=== PATIENT | female | born 1945 | race Caucasian/White ===

== ENCOUNTER 2023-03-25 14:42 | Inpatient (IN) | payer MEDICARE, OTHER ==
[~2023-03-25] VITALS: Ht 170.2 cm; Wt 76.2 kg
--- NOTE | 2023-03-25 15:23 | NUR ---
[facility] NEEDS PSYCH EVAL. pt claims she is healthy. DENIES PAIN NOT IN CR DISTRESS. AOX2, CONFUSED AND CALM WHILE LYING ON BED. PUT ON POX AND BEDSIDE MONITOR
--- NOTE | 2023-03-25 15:39 | NUR ---
EMT AT BEDSIDE PER REQUEST TO COLLECT URINE.
--- NOTE | 2023-03-25 15:45 | NUR ---
URINE COLLECTED AND SENT TO LAB
[2023-03-25 16:01] LABS: BASOPHILS # (AUTO) 0.1 K/uL (0.0-0.2); BASOPHILS % (AUTO) 0.6 % (0.0-2.0); EOSINOPHILS % (AUTO) 1.4 % (0.0-6.0); HEMATOCRIT 32 % (33-45); HEMOGLOBIN 9.8 g/dL (11.5-14.8); LYMPHOCYTES # (AUTO) 1.4 K/uL (0.8-4.8); LYMPHOCYTES % (AUTO) 17.2 % (20.0-44.0); MEAN CORPUSCULAR HGB CONC 31 g/dl (31.0-36.0); MEAN CORPUSCULAR VOLUME 64 fL (82-100); MONOCYTES # (AUTO) 0.4 K/uL (0.1-1.30); MONOCYTES % (AUTO) 4.6 % (2.0-12.0); NEUTROPHILS # (AUTO) 6.3 K/uL (1.8-8.9); NEUTROPHILS % (AUTO) 76.2 % (43.0-81.0); PLATELET COUNT (AUTO) 262 K/uL (150-450); RED BLOOD CELL COUNT(AUTO) 4.98 MIL/uL (4.0-5.2); WHITE BLOOD COUNT (AUTO) 8.3 K/uL (4.3-11.0)
[2023-03-25 16:06] LABS: BILIRUBIN,URINE NEGATIVE (NEGATIVE); COLOR,URINE YELLOW (YELLOW); LEUKOCYTE ESTERASE ,URINE 2+ (NEGATIVE); NITRITE, URINE NEGATIVE (NEGATIVE); PH,URINE 7.5 (5.0-8.0); PROTEIN,URINE NEGATIVE (NEGATIVE); UGLUCOSE NEGATIVE (NEGATIVE); UROBILINOGEN,URINE 0.2 EU/dL (0.2)
[2023-03-25 16:25] LABS: BACTERIA,URINE 1+ /HPF (None Seen); RBC,URINE 0-2 /HPF (0-2); SQUAMOUS EPITHELIAL CELL,UR Few /HPF (None Seen)
--- NOTE | 2023-03-25 16:33 | NUR ---
MOVE SHEET SUBMITTED.
[2023-03-25 16:36] LABS: ALANINE AMINOTRANSFERASE 20 U/L (12-78); ALBUMIN 3.1 g/dL (3.4-5.0); ALKALINE PHOSPHATASE 80 U/L (46-116); ASPARTATE AMINOTRANSFERASE 17 U/L (15-37); BILIRUBIN,DIRECT 0.1 mg/dL (0.0-0.2); BILIRUBIN,TOTAL 0.7 mg/dL (0.2-1.0); CALCIUM, SERUM 9.5 mg/dL (8.5-10.1); CARBON DIOXIDE 26 mmol/L (21-32); CHLORIDE 104 mmol/L (98-107); CREATININE 0.5 mg/dL (0.6-1.3); GLUCOSE 106 mg/dL (74-106); POTASSIUM 3.4 mmol/L (3.5-5.1); SODIUM SERUM 137 mmol/L (136-145); TOTAL PROTEIN, SERUM 6.6 g/dL (6.4-8.2); UREA NITROGEN, BLOOD 11 mg/dL (7-18)
[2023-03-25 16:56] LABS: ALCOHOL, BLOOD < 3 mg/dL (0-0)
--- NOTE | 2023-03-25 17:30 | NUR ---
RAE STEPHENS CALLED AND LEFT MESSAGE.
--- NOTE | 2023-03-25 17:44 | NUR ---
LACIE MCBRIDE [phone] ETA [phone]
--- NOTE | 2023-03-25 20:27 | NUR ---
REPORT GIVEN TO SHANTAL APPIAH
--- NOTE | 2023-03-25 21:53 | NUR ---
TRANSFERRED TO GPS VIA BED
--- NOTE | 2023-03-25 21:55 | NUR ---
POWER PLANT SUPERINTENDENT NOTE: ADMITTED A 77-Y/O, FEMALE, FROM [facility], INITIALLY PATIENT CAME FROM [facility]. ADMITTED ON A 5150 HOLD FOR DTO DUE TO INCREASE AGITATION AND AGGRESSIVE BEHAVIOR. UPON FACE TO FACE EVALUATION, PATIENT IS ALERT AND ORIENTED X2, ANXIOUS, RESISTIVE TO CARE, TALKING TO SELF, YELLING AND SCREAMING AND HYPERVERBAL. SKIN ASSESSMENT DONE. WOUND CONSULT ORDERED. PT. REFUSED TO SIGN ADMITTING PAPERWORK/CONSENT. ALL BELONGINGS WERE CHECKED FOR CONTRABAND. PT. VALUABLES WERE TAKEN TO [facility]. PATIENT'S RIGHTS WERE DISCUSSED AND BOOKLET WAS GIVEN. CONTACTED DR. NJ AND HOSPITALIST DR. RANDALL AND INFORMED THEM OF THE ADMISSION. BED IN LOW AND LOCKED POSITION. SAFETY PRECAUTIONS MAINTAINED. WILL CONTINUE TO MONITOR Q15 MINS FOR MOOD, SAFETY AND BEHAVIOR.
[2023-03-25 22:03] VITALS: BP 140/59
[2023-03-25] MEDS ORDERED: ACETAMINOPHEN 325 MG TABLET PO PRN (22:30)
[2023-03-25] MEDS ORDERED: TEMAZEPAM 7.5 MG CAPSULE PO PRN (22:30)
[2023-03-25] MEDS ORDERED: clonazePAM 0.5 MG TABLET PO PRN (22:30)
[2023-03-25] MEDS ORDERED: MAGNESIUM HYDROXIDE 30 ML UDC PO PRN (22:30)
[2023-03-25] MEDS ORDERED: BLOOD SUGAR DIAGNOSTIC 1 EACH STRIP IN ONE (22:30)
[2023-03-25] MEDS ORDERED: MAG HYDROX/AL HYDROX/SIMETH 30 ML UDC PO PRN (22:30)
[2023-03-25] MEDS ORDERED: LINA72CA PO (23:19)
[2023-03-25] MEDS ORDERED: SENN-261 PO (23:19)
[2023-03-25] MEDS ORDERED: CALC-17 PO (23:19)
[2023-03-25] MEDS ORDERED: ASCO500C18 PO (23:19)
[2023-03-25] MEDS ORDERED: HYDR-3642 PO (23:19)
[2023-03-25] MEDS ORDERED: HYDR-3972 PO (23:19)
[2023-03-25] MEDS ORDERED: GABA-532 PO (23:19)
[2023-03-25] MEDS ORDERED: CITA20TA19 PO (23:19)
[2023-03-25] MEDS ORDERED: CHOL200026 PO (23:19)
[2023-03-25] MEDS ORDERED: POLY90PO PO (23:19)
[2023-03-25] MEDS ORDERED: FAMO20TA8 PO (23:19)
[2023-03-25] MEDS ORDERED: FOLI0.8T2 PO (23:19)
[2023-03-25] MEDS ORDERED: QUET25TA PO ×2 (23:19)
[2023-03-25] MEDS ORDERED: IBAN150T16 PO (23:19)
[2023-03-25] MEDS ORDERED: FERR325T23 PO (23:19)
[2023-03-25] MEDS ORDERED: FURO20TA4 PO (23:19)
[2023-03-25] MEDS ORDERED: MULT-365 PO (23:19)
[2023-03-25] MEDS ORDERED: ASPI-1420 PO (23:19)
[2023-03-26] MEDS ORDERED: Z GUARD REMEDY 4 OZ OINT TP SCH (02:00)
[2023-03-26 08:00] VITALS: BP 156/69
[2023-03-26] MEDS ORDERED: LORAZEPAM INJ 2 MG/ML VIAL IM PRN (08:00)
[2023-03-26] MEDS ORDERED: HALOPERIDOL LACTATE INJ 5 MG/ML VIAL IM ONE (08:00)
--- NOTE | 2023-03-26 08:25 | NUR ---
PT WAS GIVEN IM INJECTION OF ATIVAN PER HER REQUEST. PT COOPERATIVE WITH INJECTION AND TOLERATED IT WELL. PT HAD NO DISTRESS. PT WILL BE MONITORED FOR CHANGES IN BEHAVIOR AND SAFETY.
[2023-03-26] MEDS: Z GUARD REMEDY 4 OZ OINT TP SCH ×2 (09:00→21:06)
[2023-03-26] MEDS: DIVALPROEX SODIUM 125 MG CAP.SPRINK PO SCH ×2 (09:00→21:03)
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
[2023-03-26] MEDS ORDERED: HONE15GE TP (10:44)
[2023-03-26] MEDS ORDERED: ASCO500T10 PO (10:44)
[2023-03-26] MEDS ORDERED: CALC500T52 PO (10:44)
[2023-03-26] MEDS ORDERED: NYST15CR TP (10:44)
[2023-03-26] MEDS ORDERED: ACET-2605 PO (10:44)
[2023-03-26] MEDS ORDERED: FOLI0.4T6 PO (10:44)
[2023-03-26] MEDS ORDERED: POLY17PO4 PO (10:44)
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
--- NOTE | 2023-03-26 11:29 | NUR ---
Treatment Plan: Pt refused to sign treatment plan and was aggressive.
--- NOTE | 2023-03-26 11:29 | NUR ---
Y[facility]O Initial Discharge Note: Pt currently resides at [facility] [address] [place] [address], . YOKO spoke with amparo Lewis ([phone]) who stated that she would need to consult with the DON and will let this auto service writer know if pt is welcomed back. YOKO will contact pt's son Yohan ([phone]) to gather collateral and discuss treatment/discharge plan.
--- NOTE | 2023-03-26 13:25 | NUR ---
Family Contact: SW contacted pt's daughter Milena ([phone]). SW explained that the facility she was at does not want to take pt back. SW gave her options Assisted living, or speak to facility to take her back (7 day bedhold), or take pt back home. Milena stating that she has family problems. YOKO explained to be logical and decide what the best solution would be for pt.
[2023-03-26] MEDS ORDERED: ACETAMINOPHEN ES 500 MG TABLET PO PRN (15:00)
[2023-03-26] MEDS ORDERED: HYDROCODONE/APAP 5/325MG TABLET PO PRN (15:00)
[2023-03-26] MEDS ORDERED: FUROSEMIDE 20 MG TABLET PO PRN (15:00)
[2023-03-26] MEDS ORDERED: hydrOXYzine 10 MG TABLET PO PRN (15:00)
[2023-03-26 16:00] VITALS: BP 129/61
[2023-03-26] MEDS: GABAPENTIN 100 MG CAPSULE PO SCH (17:00)
[2023-03-26] MEDS: ASCORBIC ACID 500 MG TABLET PO SCH (17:00)
[2023-03-26] MEDS: ASPIRIN EC 81 MG TABLET.DR PO SCH (17:00)
[2023-03-26 19:37] VITALS: BP 137/75
[2023-03-26] MEDS: QUETIAPINE FUMARATE 25 MG TABLET PO SCH (21:03)
--- NOTE | 2023-03-26 21:08 | NUR ---
Pt A/O x1. Respiration even and unlabored without SOB noted. Pt is compliant with care. Took PM meds PO and tolerated well. Will continue to monitor. Q 15 mins for safety. Will endorse to next shift.
[2023-03-27 08:00] VITALS: BP 130/60
[2023-03-27] MEDS: FERROUS SULFATE (325 MG) 325 MG/TAB TABLET PO SCH (08:41)
[2023-03-27] MEDS: SENNOSIDES 8.6 MG TABLET PO SCH (08:41)
[2023-03-27] MEDS: ASPIRIN EC 81 MG TABLET.DR PO SCH ×2 (08:41→16:34)
[2023-03-27] MEDS: CALCIUM CARBONATE (1250) 500 MG TABLET PO SCH (08:41)
[2023-03-27] MEDS: ASCORBIC ACID 500 MG TABLET PO SCH ×2 (08:41→16:34)
[2023-03-27] MEDS: FAMOTIDINE (20 MG) 20 MG TABLET PO SCH (08:41)
[2023-03-27] MEDS: GABAPENTIN 100 MG CAPSULE PO SCH ×3 (08:41→16:34)
[2023-03-27] MEDS: DIVALPROEX SODIUM 125 MG CAP.SPRINK PO SCH ×2 (08:41→21:49)
[2023-03-27] MEDS: Z GUARD REMEDY 4 OZ OINT TP SCH ×2 (08:41→21:57)
[2023-03-27] MEDS: POLYETHYLENE GLYCOL 3350 17 GM POWD.PACK PO SCH (08:41)
[2023-03-27 12:30] LABS: IRON, SERUM 42 ug/dl (50-175); TOTAL IRON BINDING CAPACITY 172 ug/dl (250-450)
--- NOTE | 2023-03-27 14:36 | NUR ---
FACILITY CONTACT: SW spoke with Hal admissions from [facility] [address] [place] [address], and notified them of the 7 day bed hold and that they are required to take the pt back. Hal stated once pt is stable they will take the pt back and will require clinicals sent.
[2023-03-27 16:00] VITALS: BP 129/58
--- NOTE | 2023-03-27 19:28 | NUR ---
NURSE NOTE: OPTIFOAM TO SACRAL AREA, BILAT HEELS OFFLOADED. TRIED TO REPOSITION PT MULT TIMES, BUT PT REFUSED EVERY TIME. WILL ENDORSE TO SEISMIC OBSERVER.
--- NOTE | 2023-03-27 20:13 | NUR ---
WELDER GAS NOTES: RECEIVED PATIENT IN HER ROOM. SLEEPING IN BED. EASILY AROUSABLE. ON ROOM AIR. NO ACUTE DISTRESS NOTED. NO C/O PAIN AT THIS TIME. SAFETY MEASURES IN PLACE. WILL CONTINUE TO MONITOR FOR SAFETY AND BEHAVIOR.
[2023-03-27 20:25] VITALS: BP 116/51
[2023-03-27] MEDS: QUETIAPINE FUMARATE 25 MG TABLET PO SCH (21:49)
[2023-03-27] MEDS: MUPIROCIN OINT 2% 22 GM TUBE NS SCH (21:56)
--- NOTE | 2023-03-28 05:57 | NUR ---
CASTING SUPERVISOR NOTES: PATIENT IN BED, RESTING. CALM. NO DISTRESS NOTED. A/OX2. NO C/O PAIN AT THIS TIME. ABLE TO MAKE NEEDS KNOWN. MEDICATION COMPLIANT. NEEDY. EASILY AGITATED. COOPERATIVE. PATIENT BEDBOUND. NEEDS MAXIMUM ASSISTANCE WITH ADL'S. ALL NEEDS RENDERED. WILL ENDORSE TO ONCOMING SHIFT FOR CONTINUITY OF CARE.
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
[2023-03-28 08:00] VITALS: BP 118/48
[2023-03-28] MEDS: SENNOSIDES 8.6 MG TABLET PO SCH (09:46)
[2023-03-28] MEDS: ASPIRIN EC 81 MG TABLET.DR PO SCH ×2 (09:46→17:36)
[2023-03-28] MEDS: POLYETHYLENE GLYCOL 3350 17 GM POWD.PACK PO SCH (09:46)
[2023-03-28] MEDS: GABAPENTIN 100 MG CAPSULE PO SCH ×3 (09:46→17:36)
[2023-03-28] MEDS: FERROUS SULFATE (325 MG) 325 MG/TAB TABLET PO SCH (09:46)
[2023-03-28] MEDS: ASCORBIC ACID 500 MG TABLET PO SCH ×2 (09:46→17:36)
[2023-03-28] MEDS: FAMOTIDINE (20 MG) 20 MG TABLET PO SCH (09:46)
[2023-03-28] MEDS: CALCIUM CARBONATE (1250) 500 MG TABLET PO SCH (09:46)
[2023-03-28] MEDS: DIVALPROEX SODIUM 125 MG CAP.SPRINK PO SCH ×2 (09:46→21:25)
[2023-03-28] MEDS: Z GUARD REMEDY 4 OZ OINT TP SCH ×2 (09:47→21:28)
[2023-03-28] MEDS: MUPIROCIN OINT 2% 22 GM TUBE NS SCH ×2 (09:48→21:26)
[2023-03-28] MEDS: PROSOURCE / PROSTAT (PYXIS) 30 ML UDC GT SCH (17:00)
[2023-03-28 18:50] VITALS: BP 138/60
--- NOTE | 2023-03-28 20:41 | NUR ---
FAITH HEALER NOTES: RECEIVED PATIENT SLEEPING IN BED, EASY TO AROUSE. A/OX1. BREATHING EVEN AND NON-LABORED. WITH EQUAL RISE AND FALL OF THE CHEST.ON ROOM AIR. PATIENT IS DISPLAYING NO APPARENT DISTRESS. MED COMPLIANT.NO C/O PAIN AT THIS TIME. SAFETY MEASURES IN PLACE. ALL NEEDS ATTENDED TO.WILL CONTINUE TO MONITOR FOR SAFETY AND BEHAVIOR.
[2023-03-28 21:10] VITALS: BP 135/65
[2023-03-28] MEDS: QUETIAPINE FUMARATE 25 MG TABLET PO SCH (21:25)
[2023-03-29 08:00] VITALS: BP 143/52
--- NOTE | 2023-03-29 08:02 | NUR ---
[facility]O Discharge Note: Patient will return back to [facility] [address] [place] [address], . Please arrange transportation at 1PM. YOKO spoke with Yolanda christensen ([phone]) who stated that pt can return back today. Pts daughter Milena ([phone]) is aware and agreeable of dc. Pt is alert and oriented x1. Pt denies suicidal or homicidal ideation. Pt denies visual/auditory hallucination. Patient will continue to follow-up with [employer], Dr. [place] [address] [place] [address], who will monitor and provide antipsychotic medications. Pt presents with euthymic mood and congruent affect.
[2023-03-29] MEDS: GABAPENTIN 100 MG CAPSULE PO SCH ×2 (08:56→12:11)
[2023-03-29] MEDS: CALCIUM CARBONATE (1250) 500 MG TABLET PO SCH (08:56)
[2023-03-29] MEDS: POLYETHYLENE GLYCOL 3350 17 GM POWD.PACK PO SCH (08:56)
[2023-03-29] MEDS: DIVALPROEX SODIUM 125 MG CAP.SPRINK PO SCH (08:56)
[2023-03-29] MEDS: SENNOSIDES 8.6 MG TABLET PO SCH (08:56)
[2023-03-29] MEDS: ASCORBIC ACID 500 MG TABLET PO SCH (08:56)
[2023-03-29] MEDS: FAMOTIDINE (20 MG) 20 MG TABLET PO SCH (08:56)
[2023-03-29] MEDS: FERROUS SULFATE (325 MG) 325 MG/TAB TABLET PO SCH (08:56)
[2023-03-29] MEDS: ASPIRIN EC 81 MG TABLET.DR PO SCH (08:56)
[2023-03-29] MEDS: Z GUARD REMEDY 4 OZ OINT TP SCH (08:57)
[2023-03-29] MEDS: PROSOURCE / PROSTAT (PYXIS) 30 ML UDC GT SCH (08:57)
[2023-03-29] MEDS: MUPIROCIN OINT 2% 22 GM TUBE NS SCH (08:57)
--- NOTE | 2023-03-29 09:17 | NUR ---
Dr. Olsen gave an order to D/C hold and D/C to [facility] and to continue same meds including prn.
--- NOTE | 2023-03-29 11:00 | NUR ---
LACIE ZAMUDIO [phone] GAVE REPORT TO YANELIS MURGUIA.
--- NOTE | 2023-03-29 11:25 | NUR ---
Troy Haynes NP made aware of the discharge and reconciled meds to continue in the facility and added Keflex 500 mg po q6h x5 days for UTI.
--- NOTE | 2023-03-29 13:21 | NUR ---
PT IN BED. AROUSABLE TO VERBAL AND TACTILE STIMULI. DENIES PAIN OR DISCOMFORT. NO RESP DISTRESS NOTED. PT DENIES SUICIDAL IDEATION. PT DENIES HOMICIDAL IDEATION. PT CALM AND COOPERATIVE.
--- NOTE | 2023-03-29 13:45 | NUR ---
PT PICKED UP BY [facility] WITH 2 EMT. PT AOX2 WITH PERIODS OF CONFUSION. ABLE TO DENY PAIN OR DISCOMFORT. PT DENIES HI/SI. ON ROOM AIR NO RESP DISTRESS NOTED. ALL BELONGINGS ACCOUNTED. PHOTOS OF SKIN ISSUES KEPT IN CHART.EXIT CARE FOLDER GIVEN TO EMT. PT LEFT IN STABLE CONDITION
== END 2023-03-29 13:45 | DRG 885 ==
LOC: ER 14:59 → GPS 20:03
PROVIDERS: ADMIT Nurse Practitioner Psychiatric/Mental Health; ATTEND Nurse Practitioner Acute Care
DX: F39 Unspecified mood [affective] disorder (principal); F29 Unspecified psychosis not due to a substance or known physiological condition; K21.9 Gastro-esophageal reflux disease without esophagitis; D64.9 Anemia, unspecified; F20.0 Paranoid schizophrenia; Z87.81 Personal history of (healed) traumatic fracture; Z87.891 Personal history of nicotine dependence; Z91.199 Patient's noncompliance with other medical treatment and regimen due to unspecified reason; L89.156 Pressure-induced deep tissue damage of sacral region; B96.20 Unspecified Escherichia coli [E. coli] as the cause of diseases classified elsewhere; D63.8 Anemia in other chronic diseases classified elsewhere; E87.6 Hypokalemia
CPT/HCPCS: 36415; 80048-TC; 80076-TC; 81001; 82962-TC; 83540-TC; 85025-TC; 87081-TC; 87086-TC; G0480; J1630; J2060

== ENCOUNTER 2024-12-15 11:21 | Inpatient (IN) | payer MEDICARE, OTHER ==
[~2024-12-15] VITALS: Ht 165.1 cm; Wt 71.7 kg
[~2024-12-15 11:21] MED LIST: ACET-2605 PO; ASCO500T10 PO; ASPI-1420 PO; CALC500T52 PO; CHOL200026 PO; CITA20TA19 PO; FAMO20TA8 PO; FERR325T23 PO; FOLI0.4T6 PO; FURO20TA4 PO; GABA-532 PO; HONE15GE TP; HYDR-3642 PO; HYDR-3972 PO; IBAN150T16 PO; LINA72CA PO; MULT-365 PO; NYST15CR TP; POLY17PO4 PO; QUET25TA PO; SENN-261 PO
[2024-12-15] MEDS: IV NS 0.9% 1,000 ML BAG IV ONE (12:03)
[2024-12-15] MEDS ORDERED: ATOR10TA PO (12:22)
[2024-12-15] MEDS ORDERED: OLAN5TAB3 PO (12:22)
[2024-12-15] MEDS ORDERED: DIVA125C5 PO (12:22)
[2024-12-15] MEDS ORDERED: AMIN30LI66 PO (12:22)
[2024-12-15] MEDS ORDERED: COLL30OI TP (12:22)
[2024-12-15] MEDS ORDERED: ESCI20TA PO (12:22)
[2024-12-15] MEDS ORDERED: CRAN300T PO (12:22)
[2024-12-15] MEDS ORDERED: ZINC220C6 PO (12:22)
[2024-12-15] MEDS ORDERED: OMEP40CA21 PO (12:22)
[2024-12-15 12:36] LABS: BASOPHILS % (AUTO) 0.7 % (0.0-2.0); EOSINOPHILS % (AUTO) 0.5 % (0.0-6.0); HEMATOCRIT 37 % (33-45); HEMOGLOBIN 11.2 g/dL (11.5-14.8); LYMPHOCYTES # (AUTO) 1.9 K/uL (0.8-4.8); LYMPHOCYTES % (AUTO) 28.7 % (20.0-44.0); MEAN CORPUSCULAR HEMOGLOBIN 19 PG (26.0-33.0); MEAN CORPUSCULAR HGB CONC 31 g/dl (31.0-36.0); MEAN CORPUSCULAR VOLUME 63 fL (82-100); MONOCYTES # (AUTO) 0.5 K/uL (0.1-1.30); MONOCYTES % (AUTO) 7.2 % (2.0-12.0); NEUTROPHILS # (AUTO) 4.1 K/uL (1.8-8.9); NEUTROPHILS % (AUTO) 62.9 % (43.0-81.0); PLATELET COUNT (AUTO) 321 K/uL (150-450); RED BLOOD CELL COUNT(AUTO) 5.79 MIL/uL (4.0-5.2); RED CELL DISTRIBUTION WIDTH 16.4 % (11.5-15.0); WHITE BLOOD COUNT (AUTO) 6.5 K/uL (4.3-11.0)
[2024-12-15 12:59] LABS: LACTIC ACID 1.3 mmol/L (0.4-2.0)
[2024-12-15 13:00] LABS: INR 1.14 (0.91-1.10); PARTIAL THROMBOPLASTIN TIME 28.8 SEC (24.3-34.3)
[2024-12-15 13:05] LABS: ALANINE AMINOTRANSFERASE 25 U/L (12-78); ALBUMIN 2.9 g/dL (3.4-5.0); ALKALINE PHOSPHATASE 93 U/L (46-116); ASPARTATE AMINOTRANSFERASE 20 U/L (15-37); BILIRUBIN,DIRECT 0.3 mg/dL (0.0-0.2); BILIRUBIN,TOTAL 0.9 mg/dL (0.2-1.0); CALCIUM, SERUM 8.6 mg/dL (8.5-10.1); CARBON DIOXIDE 28 mmol/L (21-32); CHLORIDE 105 mmol/L (98-107); CREATININE 0.5 mg/dL (0.6-1.3); GLUCOSE 78 mg/dL (74-106); POTASSIUM 3.4 mmol/L (3.5-5.1); SODIUM SERUM 141 mmol/L (136-145); TOTAL PROTEIN, SERUM 7.1 g/dL (6.4-8.2); UREA NITROGEN, BLOOD 15 mg/dL (7-18)
[2024-12-15 13:17] LABS: APPEARANCE,URINE TURBID (CLEAR); BILIRUBIN,URINE NEGATIVE (NEGATIVE); BLOOD, URINE 1+ Ery/uL (NEGATIVE); COLOR,URINE DARK YELLOW (YELLOW); PROTEIN,URINE 1+ mg/dl (NEGATIVE); UGLUCOSE NEGATIVE (NEGATIVE)
[2024-12-15 13:18] LABS: KETONES,URINE 1+ mg/dL (NEGATIVE); UROBILINOGEN,URINE 0.2 EU/dL (0.2)
[2024-12-15 13:19] LABS: LEUKOCYTE ESTERASE ,URINE 2+ (NEGATIVE); NITRITE, URINE POSITIVE (NEGATIVE)
[2024-12-15 13:22] LABS: ADD URINE CULTURE YES; BACTERIA,URINE 1+ /HPF (None Seen); MUCUS,URINE Few /LPF (None Seen); WBC,URINE 81-100 /HPF (0-3)
[2024-12-15] MEDS ORDERED: ACETAMINOPHEN 325 MG TABLET PO PRN (17:30)
[2024-12-15] MEDS ORDERED: ONDANSETRON HCL/PF 4 MG/2 ML VIAL IVP PRN (17:30)
[2024-12-15] MEDS: FERROUS SULFATE (325 MG) 325 MG/TAB TABLET PO SCH (19:12)
[2024-12-15] MEDS: SENNOSIDES 8.6 MG TABLET PO SCH (19:12)
[2024-12-15] MEDS: GABAPENTIN 100 MG CAPSULE PO SCH (19:12)
[2024-12-15] MEDS: IV NS 0.9% 1,000 ML IV PRN (19:13)
[2024-12-15] MEDS: CEFTRIAXONE 1 G in IV D5W 50 ML IV SCH (19:13)
[2024-12-15] MEDS: ENOXAPARIN SODIUM 40 MG/0.4 ML DISP.SYRIN SQ SCH (19:17)
[2024-12-15 20:00] VITALS: BP 164/57; TEMP 98.1; O2SAT 98
[2024-12-15] MEDS: OLANZAPINE 5 MG TABLET PO SCH (21:43)
[2024-12-15] MEDS: ATORVASTATIN 10 MG TABLET PO SCH (21:43)
[2024-12-15] MEDS: DIVALPROEX SODIUM 125 MG CAP.SPRINK PO SCH (21:43)
[2024-12-15] MEDS: QUETIAPINE FUMARATE 25 MG TABLET PO SCH (21:43)
[2024-12-15] MEDS: POTASSIUM CHLORIDE 20 MEQ TAB.PRT.SR PO ONE (22:12)
[2024-12-16] VITALS: BP 133/66; TEMP 97.7; O2SAT 98
[2024-12-16 04:00] VITALS: BP 158/74; TEMP 97.7; O2SAT 98
[2024-12-16 07:19] LABS: BASOPHILS % (AUTO) 0.5 % (0.0-2.0); EOSINOPHILS % (AUTO) 0.6 % (0.0-6.0); HEMATOCRIT 33 % (33-45); LYMPHOCYTES # (AUTO) 1.8 K/uL (0.8-4.8); LYMPHOCYTES % (AUTO) 25.1 % (20.0-44.0); MEAN CORPUSCULAR HEMOGLOBIN 19 PG (26.0-33.0); MEAN CORPUSCULAR HGB CONC 30 g/dl (31.0-36.0); MEAN CORPUSCULAR VOLUME 62 fL (82-100); MONOCYTES # (AUTO) 0.5 K/uL (0.1-1.30); MONOCYTES % (AUTO) 6.9 % (2.0-12.0); NEUTROPHILS # (AUTO) 4.8 K/uL (1.8-8.9); NEUTROPHILS % (AUTO) 66.9 % (43.0-81.0); PLATELET COUNT (AUTO) 308 K/uL (150-450); RED CELL DISTRIBUTION WIDTH 16.5 % (11.5-15.0); WHITE BLOOD COUNT (AUTO) 7.2 K/uL (4.3-11.0)
[2024-12-16 07:34] LABS: CALCIUM, SERUM 8.6 mg/dL (8.5-10.1); CREATININE 0.6 mg/dL (0.6-1.3); MAGNESIUM 1.9 mg/dL (1.8-2.4); PHOSPHORUS 2.9 mg/dL (2.5-4.9); POTASSIUM 3.4 mmol/L (3.5-5.1)
[2024-12-16 08:00] VITALS: BP 172/65; TEMP 97.9; O2SAT 94
[2024-12-16] MEDS: ESCITALOPRAM OXALATE (10 MG) 10 MG TABLET PO SCH (08:46)
[2024-12-16] MEDS: CALCIUM CARBONATE (1250) 500 MG TABLET PO SCH (08:46)
[2024-12-16] MEDS: PANTOPRAZOLE 40 MG TABLET.DR PO SCH (08:46)
[2024-12-16] MEDS: ASCORBIC ACID 500 MG TABLET PO SCH (08:46)
[2024-12-16] MEDS: ZINC SULFATE 220 MG CAPSULE PO SCH (08:46)
[2024-12-16] MEDS: FAMOTIDINE (20 MG) 20 MG TABLET PO SCH (08:47)
[2024-12-16] MEDS: THERAHONEY GEL 1.5 OZ TUBE TP SCH (08:47)
[2024-12-16 12:00] VITALS: BP 110/46; TEMP 97.9; O2SAT 94
[2024-12-16] MEDS: POTASSIUM CHLORIDE 20 MEQ TAB.PRT.SR PO SCH (13:06)
[2024-12-16 16:00] VITALS: BP 149/62; TEMP 102.4; O2SAT 96
[2024-12-16 20:00] VITALS: BP 176/75; TEMP 98.4; O2SAT 95
[2024-12-17] VITALS: BP 133/44; TEMP 98.1; O2SAT 95
[2024-12-17 04:00] VITALS: BP 137/78; TEMP 98.1; O2SAT 96
[2024-12-17 07:17] LABS: BASOPHILS % (AUTO) 0.5 % (0.0-2.0); EOSINOPHILS % (AUTO) 0.5 % (0.0-6.0); HEMATOCRIT 33 % (33-45); HEMOGLOBIN 10.2 g/dL (11.5-14.8); LYMPHOCYTES # (AUTO) 2.1 K/uL (0.8-4.8); LYMPHOCYTES % (AUTO) 21.9 % (20.0-44.0); MEAN CORPUSCULAR HEMOGLOBIN 20 PG (26.0-33.0); MEAN CORPUSCULAR HGB CONC 31 g/dl (31.0-36.0); MEAN CORPUSCULAR VOLUME 62 fL (82-100); MONOCYTES # (AUTO) 0.6 K/uL (0.1-1.30); MONOCYTES % (AUTO) 6.5 % (2.0-12.0); NEUTROPHILS # (AUTO) 6.6 K/uL (1.8-8.9); NEUTROPHILS % (AUTO) 70.6 % (43.0-81.0); PLATELET COUNT (AUTO) 317 K/uL (150-450); RED BLOOD CELL COUNT(AUTO) 5.21 MIL/uL (4.0-5.2); RED CELL DISTRIBUTION WIDTH 16.5 % (11.5-15.0); WHITE BLOOD COUNT (AUTO) 9.4 K/uL (4.3-11.0)
[2024-12-17 08:00] VITALS: BP 144/51; TEMP 98.1; O2SAT 95
[2024-12-17 08:00] LABS: CALCIUM, SERUM 8.3 mg/dL (8.5-10.1); CREATININE 0.5 mg/dL (0.6-1.3); MAGNESIUM 1.7 mg/dL (1.8-2.4); PHOSPHORUS 2.9 mg/dL (2.5-4.9); POTASSIUM 3.2 mmol/L (3.5-5.1)
[2024-12-17] MEDS: PROSOURCE / PROSTAT (PYXIS) 30 ML UDC GT SCH (09:30)
[2024-12-17] MEDS: POTASSIUM CHLORIDE 20 MEQ TAB.PRT.SR PO ONE (12:25)
[2024-12-17] MEDS: MAGNESIUM OXIDE 400 MG TABLET PO ONE (12:25)
[2024-12-17] MEDS: DAKINS QUARTER STRENGTH (0.125%) 480 ML BOTTLE TOP SCH (16:46)
[2024-12-17 20:00] VITALS: BP_SYST 151; BP_SYST 152; BP_DIAS 58; BP_DIAS 59; TEMP 97.7; TEMP 98.4; O2SAT 96; O2SAT 98
[2024-12-18] VITALS: BP 152/59; TEMP 98.4; O2SAT 98
[2024-12-18 01:18] VITALS: BP 151/58; TEMP 97.7; O2SAT 98
[2024-12-18 04:00] VITALS: BP 142/54; TEMP 97.7; O2SAT 97
[2024-12-18 06:43] LABS: BASOPHILS % (AUTO) 0.6 % (0.0-2.0); EOSINOPHILS % (AUTO) 0.3 % (0.0-6.0); HEMATOCRIT 32 % (33-45); HEMOGLOBIN 9.8 g/dL (11.5-14.8); LYMPHOCYTES # (AUTO) 1.5 K/uL (0.8-4.8); LYMPHOCYTES % (AUTO) 22.4 % (20.0-44.0); MEAN CORPUSCULAR HEMOGLOBIN 19 PG (26.0-33.0); MEAN CORPUSCULAR HGB CONC 31 g/dl (31.0-36.0); MEAN CORPUSCULAR VOLUME 62 fL (82-100); MONOCYTES # (AUTO) 0.5 K/uL (0.1-1.30); MONOCYTES % (AUTO) 6.8 % (2.0-12.0); NEUTROPHILS # (AUTO) 4.7 K/uL (1.8-8.9); NEUTROPHILS % (AUTO) 69.9 % (43.0-81.0); PLATELET COUNT (AUTO) 284 K/uL (150-450); RED BLOOD CELL COUNT(AUTO) 5.11 MIL/uL (4.0-5.2); RED CELL DISTRIBUTION WIDTH 16.9 % (11.5-15.0); WHITE BLOOD COUNT (AUTO) 6.7 K/uL (4.3-11.0)
[2024-12-18 06:59] LABS: CALCIUM, SERUM 8.8 mg/dL (8.5-10.1); CREATININE 0.4 mg/dL (0.6-1.3); MAGNESIUM 1.8 mg/dL (1.8-2.4); PHOSPHORUS 2.6 mg/dL (2.5-4.9); POTASSIUM 3.3 mmol/L (3.5-5.1)
[2024-12-18] MEDS: POTASSIUM CHLORIDE 20 MEQ POWDER PACKET PO ONE (12:08)
[2024-12-18 20:00] VITALS: BP 148/53; TEMP 97.7; TEMP 97.9; O2SAT 92; O2SAT 96
[2024-12-19 06:34] LABS: BASOPHILS % (AUTO) 0.5 % (0.0-2.0); EOSINOPHILS # (AUTO) 0.1 K/uL (0.0-0.7); EOSINOPHILS % (AUTO) 0.9 % (0.0-6.0); HEMATOCRIT 33 % (33-45); HEMOGLOBIN 10.1 g/dL (11.5-14.8); LYMPHOCYTES # (AUTO) 1.3 K/uL (0.8-4.8); LYMPHOCYTES % (AUTO) 21.8 % (20.0-44.0); MEAN CORPUSCULAR HEMOGLOBIN 19 PG (26.0-33.0); MEAN CORPUSCULAR HGB CONC 31 g/dl (31.0-36.0); MEAN CORPUSCULAR VOLUME 63 fL (82-100); MONOCYTES # (AUTO) 0.4 K/uL (0.1-1.30); MONOCYTES % (AUTO) 6.8 % (2.0-12.0); NEUTROPHILS # (AUTO) 4.3 K/uL (1.8-8.9); PLATELET COUNT (AUTO) 267 K/uL (150-450); RED BLOOD CELL COUNT(AUTO) 5.23 MIL/uL (4.0-5.2); WHITE BLOOD COUNT (AUTO) 6.2 K/uL (4.3-11.0)
[2024-12-19 07:03] LABS: CALCIUM, SERUM 8.6 mg/dL (8.5-10.1); CREATININE 0.4 mg/dL (0.6-1.3); MAGNESIUM 1.7 mg/dL (1.8-2.4); PHOSPHORUS 2.8 mg/dL (2.5-4.9)
[2024-12-19 07:40] LABS: POTASSIUM 2.6 mmol/L (3.5-5.1)
[2024-12-19 08:23] VITALS: BP 145/66; TEMP 97.9
[2024-12-19] MEDS: POTASSIUM CL. PREMIX PERIPHER. 50 ML IV SCH (10:27)
[2024-12-19 12:00] VITALS: BP 145/62; TEMP 98.2
[2024-12-19] MEDS: MAGNESIUM OXIDE 400 MG TABLET PO ONE (12:00)
[2024-12-19] MEDS ORDERED: OLANZAPINE 10 MG VIAL IM PRN (14:30)
[2024-12-19] MEDS: Magnesium 1GM/D5W 100ML PREMIX 100 ML IV SCH (15:10)
[2024-12-19] MEDS: OLANZAPINE ZYDIS 5 MG TAB.RAPDIS PO SCH (15:10)
[2024-12-19 20:00] VITALS: BP 157/47; TEMP 98.1; O2SAT 97
[2024-12-20 08:00] VITALS: BP 140/68; TEMP 97.3
[2024-12-20 12:48] LABS: CALCIUM, SERUM 8.7 mg/dL (8.5-10.1); CREATININE 0.3 mg/dL (0.6-1.3); MAGNESIUM 2.3 mg/dL (1.8-2.4); PHOSPHORUS 2.8 mg/dL (2.5-4.9)
[2024-12-20 12:50] LABS: BASOPHILS # (AUTO) 0.1 K/uL (0.0-0.2); BASOPHILS % (AUTO) 0.8 % (0.0-2.0); EOSINOPHILS % (AUTO) 0.5 % (0.0-6.0); HEMATOCRIT 34 % (33-45); HEMOGLOBIN 10.7 g/dL (11.5-14.8); LYMPHOCYTES # (AUTO) 1.5 K/uL (0.8-4.8); LYMPHOCYTES % (AUTO) 19.9 % (20.0-44.0); MEAN CORPUSCULAR HEMOGLOBIN 19 PG (26.0-33.0); MEAN CORPUSCULAR HGB CONC 31 g/dl (31.0-36.0); MEAN CORPUSCULAR VOLUME 62 fL (82-100); MONOCYTES # (AUTO) 0.5 K/uL (0.1-1.30); MONOCYTES % (AUTO) 6.9 % (2.0-12.0); NEUTROPHILS # (AUTO) 5.4 K/uL (1.8-8.9); NEUTROPHILS % (AUTO) 71.9 % (43.0-81.0); PLATELET COUNT (AUTO) 300 K/uL (150-450); RED BLOOD CELL COUNT(AUTO) 5.59 MIL/uL (4.0-5.2); RED CELL DISTRIBUTION WIDTH 16.5 % (11.5-15.0); WHITE BLOOD COUNT (AUTO) 7.5 K/uL (4.3-11.0)
[2024-12-20 12:58] LABS: POTASSIUM 2.7 mmol/L (3.5-5.1)
[2024-12-20] MEDS: POTASSIUM CL. PREMIX PERIPHER. 50 ML IV SCH (13:33)
[2024-12-20] MEDS: IV D5/ 0.9% NACL 1,000 ML IV PRN (15:19)
[2024-12-20 16:00] VITALS: BP 152/76; O2SAT 96
[2024-12-20 20:00] VITALS: BP_SYST 127; BP_SYST 163; BP_DIAS 60; BP_DIAS 62; TEMP 97.7; TEMP 98.2; O2SAT 100; O2SAT 97
[2024-12-21 08:00] VITALS: BP 167/77; TEMP 98.6; O2SAT 96
[2024-12-21 13:53] LABS: CREATINE KINASE, TOTAL 8 U/L (26-192)
[2024-12-21 14:17] LABS: VALPROIC ACID < 3 ug/mL (50-100)
[2024-12-21 16:29] VITALS: BP 158/70; TEMP 98.1; O2SAT 98
[2024-12-21 20:00] VITALS: BP 130/54; TEMP 98.4; O2SAT 96
[2024-12-22 08:21] VITALS: BP 167/66; TEMP 97.9; O2SAT 96
[2024-12-22 10:09] LABS: FOLIC ACID 18.1 ng/mL (>3.0)
[2024-12-22] MEDS ORDERED: POTASSIUM CHLORIDE 20 MEQ TAB.PRT.SR PO ONE (12:00)
[2024-12-22 13:27] LABS: CALCIUM, SERUM 8.4 mg/dL (8.5-10.1); CREATININE 0.3 mg/dL (0.6-1.3)
[2024-12-22] MEDS: POTASSIUM CL. PREMIX PERIPHER. 50 ML IV SCH (13:44)
[2024-12-22 13:47] LABS: POTASSIUM 2.7 mmol/L (3.5-5.1)
[2024-12-22 16:02] VITALS: BP 157/63; TEMP 97.9; O2SAT 98
[2024-12-22 20:00] VITALS: BP 153/66; TEMP 97.9; O2SAT 95
[2024-12-23 07:30] VITALS: BP 147/61; TEMP 98.1; O2SAT 99
[2024-12-23 08:30] LABS: BASOPHILS # (AUTO) 0.1 K/uL (0.0-0.2); BASOPHILS % (AUTO) 1.1 % (0.0-2.0); EOSINOPHILS % (AUTO) 0.4 % (0.0-6.0); HEMATOCRIT 31 % (33-45); HEMOGLOBIN 9.8 g/dL (11.5-14.8); LYMPHOCYTES # (AUTO) 1.2 K/uL (0.8-4.8); LYMPHOCYTES % (AUTO) 21.5 % (20.0-44.0); MEAN CORPUSCULAR HEMOGLOBIN 19 PG (26.0-33.0); MEAN CORPUSCULAR HGB CONC 32 g/dl (31.0-36.0); MEAN CORPUSCULAR VOLUME 61 fL (82-100); MONOCYTES # (AUTO) 0.5 K/uL (0.1-1.30); MONOCYTES % (AUTO) 8.6 % (2.0-12.0); NEUTROPHILS # (AUTO) 3.7 K/uL (1.8-8.9); NEUTROPHILS % (AUTO) 68.4 % (43.0-81.0); PLATELET COUNT (AUTO) 252 K/uL (150-450); RED CELL DISTRIBUTION WIDTH 16.3 % (11.5-15.0); WHITE BLOOD COUNT (AUTO) 5.4 K/uL (4.3-11.0)
[2024-12-23 08:38] LABS: CALCIUM, SERUM 8.4 mg/dL (8.5-10.1); CREATININE 0.4 mg/dL (0.6-1.3); POTASSIUM 3.5 mmol/L (3.5-5.1)
== END 2024-12-23 10:30 | DRG 622 ==
LOC: ER 11:24 → MED 17:40 → TELE 20:27 → MED 12-18 11:36
PROVIDERS: ADMIT Nurse Practitioner Acute Care; ATTEND Internal Medicine
PROC: 0KBP0ZZ Excision of Left Hip Muscle, Open Approach (ICD-10-PCS; principal; 2024-12-18)
PROC: 0KBN0ZZ Excision of Right Hip Muscle, Open Approach (ICD-10-PCS; 2024-12-18)
PROC: 0KBP0ZZ Excision of Left Hip Muscle, Open Approach (ICD-10-PCS; 2024-12-22)
PROC: 0KBN0ZZ Excision of Right Hip Muscle, Open Approach (ICD-10-PCS; 2024-12-22)
DX: R62.7 Adult failure to thrive (principal); G93.41 Metabolic encephalopathy; L89.154 Pressure ulcer of sacral region, stage 4; E44.0 Moderate protein-calorie malnutrition; N39.0 Urinary tract infection, site not specified; I69.954 Hemiplegia and hemiparesis following unspecified cerebrovascular disease affecting left non-dominant side; F03.92 Unspecified dementia, unspecified severity, with psychotic disturbance; Z20.822 Contact with and (suspected) exposure to COVID-19; K21.9 Gastro-esophageal reflux disease without esophagitis; Z87.81 Personal history of (healed) traumatic fracture; Z79.899 Other long term (current) drug therapy; B96.89 Other specified bacterial agents as the cause of diseases classified elsewhere; E88.09 Other disorders of plasma-protein metabolism, not elsewhere classified; Z86.16 Personal history of COVID-19; F29 Unspecified psychosis not due to a substance or known physiological condition; D50.9 Iron deficiency anemia, unspecified
CPT/HCPCS: 36415; 70450-TC; 71045-TC; 80048-TC; 80076-TC; 80164-TC; 81001; 82550-TC; 82607-TC; 83605-TC; 83735-TC; 83921; 84100-TC; 84132-TC; 84425; 84443-TC; 84484-TC; 85025-TC; 85730-TC; 87040-TC; A4223; A6253; A6403; G0378; J0696; J1650; J3475; J3480; J7030; J7042; J7050; J7060

== ENCOUNTER 2025-03-18 18:24 | Inpatient (IN) | payer MEDICARE, OTHER ==
[~2025-03-18] VITALS: Ht 154.9 cm; Wt 68.5 kg
[~2025-03-18 18:24] MED LIST changes: -ACET-2605 PO; +AMIN30LI66 PO; -ASPI-1420 PO; +ATOR10TA PO; -CHOL200026 PO; -CITA20TA19 PO; +COLL30OI TP; +CRAN300T PO; +DIVA125C5 PO; +ESCI20TA PO; -FOLI0.4T6 PO; -HONE15GE TP; -HYDR-3642 PO; -HYDR-3972 PO; -IBAN150T16 PO; -LINA72CA PO; -MULT-365 PO; -NYST15CR TP; +OLAN5TAB3 PO; +OMEP40CA21 PO; -POLY17PO4 PO; +ZINC220C6 PO
[2025-03-18 19:44] LABS: BASOPHILS # (AUTO) 0.1 K/uL (0.0-0.2); BASOPHILS % (AUTO) 0.8 % (0.0-2.0); EOSINOPHILS # (AUTO) 0.1 K/uL (0.0-0.7); EOSINOPHILS % (AUTO) 1.5 % (0.0-6.0); HEMATOCRIT 31 % (33-45); HEMOGLOBIN 9.7 g/dL (11.5-14.8); LYMPHOCYTES # (AUTO) 2.2 K/uL (0.8-4.8); LYMPHOCYTES % (AUTO) 23.8 % (20.0-44.0); MEAN CORPUSCULAR HEMOGLOBIN 21 PG (26.0-33.0); MEAN CORPUSCULAR HGB CONC 32 g/dl (31.0-36.0); MEAN CORPUSCULAR VOLUME 66 fL (82-100); MONOCYTES # (AUTO) 0.5 K/uL (0.1-1.30); MONOCYTES % (AUTO) 5.8 % (2.0-12.0); NEUTROPHILS # (AUTO) 6.2 K/uL (1.8-8.9); NEUTROPHILS % (AUTO) 68.1 % (43.0-81.0); PLATELET COUNT (AUTO) 359 K/uL (150-450); RED BLOOD CELL COUNT(AUTO) 4.65 MIL/uL (4.0-5.2); RED CELL DISTRIBUTION WIDTH 17.9 % (11.5-15.0); WHITE BLOOD COUNT (AUTO) 9.1 K/uL (4.3-11.0)
[2025-03-18 19:53] LABS: CALCIUM, SERUM 9.3 mg/dL (8.5-10.1); CARBON DIOXIDE 25 mmol/L (21-32); CHLORIDE 107 mmol/L (98-107); CREATININE 0.5 mg/dL (0.6-1.3); GLUCOSE 106 mg/dL (74-106); POTASSIUM 3.7 mmol/L (3.5-5.1); SODIUM SERUM 138 mmol/L (136-145); UREA NITROGEN, BLOOD 13 mg/dL (7-18)
[2025-03-18 19:59] LABS: ALANINE AMINOTRANSFERASE 25 U/L (12-78); ALBUMIN 2.8 g/dL (3.4-5.0); ALCOHOL, BLOOD < 3 mg/dL (0-10); ALKALINE PHOSPHATASE 76 U/L (46-116); ASPARTATE AMINOTRANSFERASE 16 U/L (15-37); BILIRUBIN,DIRECT 0.1 mg/dL (0.0-0.2); BILIRUBIN,TOTAL 0.3 mg/dL (0.2-1.0); TOTAL PROTEIN, SERUM 6.8 g/dL (6.4-8.2)
[2025-03-18 20:00] LABS: ACETAMINOPHEN <10 ug/ml (10-30); SALICYLATE 1.3 mg/dL (2.8-20.0)
[2025-03-18 20:10] LABS: APPEARANCE,URINE SLIGHTLY CLOUDY (CLEAR); BILIRUBIN,URINE NEGATIVE (NEGATIVE); BLOOD, URINE 1+ Ery/uL (NEGATIVE); COLOR,URINE YELLOW (YELLOW); KETONES,URINE NEGATIVE (NEGATIVE); LEUKOCYTE ESTERASE ,URINE 3+ (NEGATIVE); NITRITE, URINE POSITIVE (NEGATIVE); PROTEIN,URINE NEGATIVE (NEGATIVE); UGLUCOSE NEGATIVE (NEGATIVE); UROBILINOGEN,URINE 0.2 EU/dL (0.2)
[2025-03-18 20:28] LABS: ADD URINE CULTURE YES; BACTERIA,URINE Moderate /HPF (None Seen); SQUAMOUS EPITHELIAL CELL,UR Few /HPF (None Seen)
[2025-03-18 20:29] LABS: CALCIUM OXALATE CRYSTALS,UR Few /HPF (None Seen); YEAST,URINE Moderate /HPF (None Seen)
[2025-03-18 20:30] LABS: AMPHETAMINE, URINE NEGATIVE (NEGATIVE); BARBITURATE, URINE NEGATIVE (NEGATIVE); BENZODIAZEPINE, URINE NEGATIVE (NEGATIVE); CANNABINOID, URINE NEGATIVE (NEGATIVE); COCCAINE, URINE NEGATIVE (NEGATIVE); OPIATE, URINE NEGATIVE (NEGATIVE); PHENCYCLIDINE SCREEN,URINE NEGATIVE (NEGATIVE)
[2025-03-18] MEDS: CEPHALEXIN MONOHYDRATE 500 MG CAPSULE PO ONE (20:44)
[2025-03-19] MEDS ORDERED: CEPHALEXIN MONOHYDRATE 500 MG CAPSULE PO ONE (03:19)
[2025-03-19 09:00] VITALS: BP 120/46; TEMP 99.5; O2SAT 98
[2025-03-19] MEDS ORDERED: ZINC56.713 TP (09:07)
[2025-03-19] MEDS ORDERED: MAG HYDROX/AL HYDROX/SIMETH 30 ML UDC PO PRN (10:00)
[2025-03-19] MEDS ORDERED: ONDANSETRON HCL/PF 4 MG/2 ML VIAL IVP PRN (10:00)
[2025-03-19] MEDS ORDERED: Z GUARD REMEDY 4 OZ OINT TP PRN (10:00)
[2025-03-19] MEDS ORDERED: ACETAMINOPHEN 325 MG TABLET PO PRN (10:00)
[2025-03-19] MEDS ORDERED: MAGNESIUM HYDROXIDE 30 ML UDC PO PRN (10:00)
[2025-03-19] MEDS ORDERED: LORAZEPAM 1 MG TABLET PO PRN (10:30)
[2025-03-19] MEDS ORDERED: TEMAZEPAM 7.5 MG CAPSULE PO PRN (10:30)
[2025-03-19] MEDS ORDERED: OLANZAPINE 10 MG VIAL IM PRN (10:30)
[2025-03-19] MEDS: IV NS 0.9% 1,000 ML IV PRN (11:50)
[2025-03-19 16:00] VITALS: BP 143/62; TEMP 97.7; O2SAT 98
[2025-03-19] MEDS: OLANZAPINE ZYDIS 5 MG TAB.RAPDIS PO SCH (16:59)
[2025-03-19] MEDS: CEPHALEXIN MONOHYDRATE 500 MG CAPSULE PO SCH (17:16)
[2025-03-19 20:00] VITALS: BP 149/67; TEMP 98.1; O2SAT 97
[2025-03-19] MEDS: DIVALPROEX SODIUM 125 MG CAP.SPRINK PO SCH (20:57)
[2025-03-20 08:00] VITALS: BP 143/70; TEMP 97.9; O2SAT 96
[2025-03-20] MEDS: ESCITALOPRAM OXALATE (10 MG) 10 MG TABLET PO SCH (08:32)
[2025-03-20 21:49] VITALS: BP 125/72; TEMP 98; O2SAT 98
[2025-03-21 07:30] VITALS: BP 145/62; TEMP 97.5; O2SAT 99
[2025-03-21] MEDS ORDERED: CEPH-570 PO (10:21)
[2025-03-21 16:17] VITALS: BP 145/69; TEMP 98.1; O2SAT 97
[2025-03-26] MEDS ORDERED: CEPHALEXIN MONOHYDRATE 500 MG CAPSULE PO SCH (18:00)
== END 2025-03-21 18:00 | DRG 689 ==
LOC: ER 18:37 → GPS 23:16 → MED 03-19 04:24
PROVIDERS: ADMIT Nurse Practitioner Family; ATTEND Internal Medicine
DX: N39.0 Urinary tract infection, site not specified (principal); G93.41 Metabolic encephalopathy; E44.1 Mild protein-calorie malnutrition; F03.93 Unspecified dementia, unspecified severity, with mood disturbance; F03.911 Unspecified dementia, unspecified severity, with agitation; F03.92 Unspecified dementia, unspecified severity, with psychotic disturbance; F03.94 Unspecified dementia, unspecified severity, with anxiety; F03.918 Unspecified dementia, unspecified severity, with other behavioral disturbance; E88.09 Other disorders of plasma-protein metabolism, not elsewhere classified; K21.9 Gastro-esophageal reflux disease without esophagitis; D64.9 Anemia, unspecified; Z20.822 Contact with and (suspected) exposure to COVID-19; R45.1 Restlessness and agitation; I10 Essential (primary) hypertension; E78.5 Hyperlipidemia, unspecified; Z87.81 Personal history of (healed) traumatic fracture; Z79.899 Other long term (current) drug therapy; Z91.199 Patient's noncompliance with other medical treatment and regimen due to unspecified reason; Z73.6 Limitation of activities due to disability; B96.89 Other specified bacterial agents as the cause of diseases classified elsewhere; F29 Unspecified psychosis not due to a substance or known physiological condition; F31.9 Bipolar disorder, unspecified; F41.9 Anxiety disorder, unspecified; R32 Unspecified urinary incontinence
CPT/HCPCS: 36415; 80048-TC; 80076-TC; 81001; 85025-TC; 87081-TC; 87086-TC; 97110-TC; 97530-TC; A4223; A6213; G0378; G0480; J7030